=== PATIENT | male | born 1995 | race Caucasian/White ===

== ENCOUNTER 2025-07-19 12:33 | Emergency (ER) | payer BC, SELFPAY ==
[2025-07-19 12:42] VITALS: BP 148/96
[2025-07-19 13:19] LABS: Hematocrit 43.8 % (39.0-52.0); Hemoglobin 15.1 g/dL (13.0-18.0); Mean Corp Hgb Conc. 34.5 g/dL (33.0-37.0); Mean Corpuscular Volume 84.6 fL (80.0-94.0); Nucleated Red Blood Cells % 0 % (-); Platelet Count 131 10^3/uL (130-400); Red Cell Dist. Width 12.6 % (11.5-14.5)
[2025-07-19 13:25] LABS: ALT (SGPT) 21 U/L (0-50); AST (SGOT) 19 U/L (17-59); Albumin 4.0 g/dl (3.5-5.0); Alkaline Phosphatase 55 U/L (38-126); Blood Urea Nitrogen 14 mg/dl (9-20); Calcium 9.1 mg/dl (8.4-10.2); Carbon Dioxide 29 mmol/L (22-30); Chloride 102 mmol/L (98-107); Glucose 105 mg/dl (70-99); Potassium 4.5 mmol/L (3.5-5.1); Sodium 135 mmol/L (135-145); Total Protein 6.3 g/dl (6.3-8.2); eGFR 59.08
[2025-07-19 13:27] LABS: Urine Character Clear (Clear)
[2025-07-19 14:30] LABS: Urine Squamous Cell 0-2 /LPF (Few); Urine White Cell 0-2 /HPF (0-5)
--- NOTE | 2025-07-19 15:12 | ED.GENMED ---
History of Present Illness
General
Chief Complaint: Flank Pain
Source: patient
Exam Limitations: none
Time Seen by Provider: 07/19/25 14:57
History of Present Illness
History of Present Illness:
30yoM with no significant past medical history presenting for evaluation of flank pain. Patient started with left flank pain 3 days ago. He was seen at [facility] ED and diagnosed with a 2mm L kidney stone. He was given prescriptions for Flomax,
naproxen, [place], and Zofran. He has a follow-up appointment scheduled with [facility] on 07/25/24. He was doing well yesterday and started to have severe L flank pain again this afternoon followed by 1 episode of vomiting. Symptoms have
since resolved and he is currently pain free. No fevers or urinary symptoms.
Phy Exam
General Physical Exam
General Presentation: well appearing and no apparent distress
General age: appears stated age
General Skin: warm and dry
General Habitus: normal
General Mental: alert
ENT Exam
ENT Exam: normocephalic
Pulmonary Exam
Pulmonary Exam: no respiratory distress
Gastrointestinal Exam
Gastrointestinal Exam: non tender, soft, non distended and no cva tenderness
Neurological Exam
Neurological Exam: alert
Abeba Coma Scale
Eye Opening: Spontaneous
Verbal Response: Oriented
Motor Response: Obeys Commands
GCS Total Score: 15
Skin Exam
Skin Exam: normal color and warm/dry
Psychiatric Exam
Psychiatric Exam: normal mood/affect
Course
Orders/Labs/Results
Orders:
Orders
07/19/25
Renal & Bladder US [US Renal With Bladder] Urgent
Comment:
Reason For Exam: recent diagnosis of L ureteral stone
07/19/25 12:56
CBC/With Diff [Complete Blood Count/With Diff] Urgent
Comprehensive Metabolic Panel Urgent
Urinalysis Reflex To Culture Urgent
Date Specimen was Collected: 07/19/25
Time Specimen was Collected: 12:47
Urine Microscopic Reflex Cult Urgent
07/19/25 15:11
0.9% Sodium Chloride 1000 ml [Nss] 1,000 ml IV BOLUS
Abnormal Lab Results
07/19/25
12:56
WBC 11.3 H 10^3/uL
(4.8-10.8)
MPV 11.4 H fL
(7.4-10.4)
Abs Immat Gran (auto) 0.1 H 10^3/uL
(0-0.05)
Absolute Neuts (auto) 9.6 H 10^3/uL
(1.4-6.5)
Absolute Lymphs (auto) 1.0 L 10^3/uL
(1.2-3.4)
Neutrophils % 84.7 H %
(42.2-75.2)
Lymphocytes % 8.7 L %
(20.5-51.1)
Creatinine 1.6 H mg/dL
(0.7-1.3)
Glucose 105 H mg/dl
(70-99)
Ur Occult Blood Reflex 1+ A
(Negative)
Urine RBC 7-10 A /HPF
(0-2)
Urine Bacteria (Reflex) Few A
(Negative)
07/19/25 12:56
07/19/25 12:56
Vital Signs
Initial and Last Documented VS:
Initial Vital Signs
Pulse Resp BP Pulse Ox
90 16 148/96 96
07/19/25 12:42 07/19/25 12:42 07/19/25 12:42 07/19/25 12:42
Last Documented Vital Signs
Temp Pulse Resp BP Pulse Ox
97.8 F 90 16 148/96 96
07/19/25 15:14 07/19/25 12:42 07/19/25 12:42 07/19/25 12:42 07/19/25 15:14
MDM/Problems Addressed
Differential Diagnosis Includes:
30yoM here after an episode of L flank pain and vomiting this afternoon. Symptoms now resolved. Diagnosed with 2mm L kidney stone 2 days ago. Patient hypertensive with otherwise stable vital signs. He is well appearing in no distress. No abdominal
or CVA tenderness. Differential diagnosis includes: renal colic, passed stone, hydronephrosis
Initial ED plan: Workup initiated in triage. Creatinine 1.6, unclear baseline and patient does not have records available from recent ED visit. UA with microscopic hematuria but no signs of infection. Will check renal ultrasound. IV fluid bolus.
Attempt to obtain records from [facility].
*Pulse Oximetry
SaO2: 96
Oxygen Mode of Delivery: Room air
Patient hypoxic: no
*Critical Care Note
Total Time (30-74mins, 75-104mins- exclusive of procedures): Not Applicable
Update Note
Update Note:
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 Renal ultrasound does not show any dilatation of renal collecting system and bilateral ureteral jets are confirmed. Suspect that patient has passed stone.
He remains asymptomatic on reassessment. He is stable for discharge. Advised increased fluid intake. He has an appt with his PCP in 2 days and ED return precautions reviewed. Patient in agreement with plan and was discharged in stable condition.
ED Attending Note
-
Portions of this chart may have been created with voice recognition software.� Occasional wrong word or��sound alike� substitutions may have occurred due to the inherent limitations of voice recognition software.
Discharge Plan
Departure
Patient Disposition: Home (Routine Discharge)
Date of Disposition: 07/19/25
Time of Disposition: 17:23
Patient with high blood pressure during this ER visit?: Yes
Discharge Problem:
Left flank pain
Instructions: Kidney Stones (DC)
Referrals:
Bryson Aviles MD [Family Provider, Family Practice]
Activity Restrictions/Additional Instructions:
Increase your fluid intake and stay hydrated. Continue taking Zofran as needed for nausea and naproxen/hydrocodone as needed for pain.
Please follow-up with urology next week as previously scheduled. Return to the ER with any worsening symptoms including uncontrolled pain or fevers.
Interventions
Interventions:
*General Assessment Last Done: 07/19/25 12:42
*Neglect/Abuse Screening Last Done: 07/19/25 12:42
*Risk Screen - Suicide (C-SSRS) Last Done: 07/19/25 12:42
AE-Vveuhf-Fnnuhnazwz Assessment Last Done: 07/19/25 15:27
ED-Male Genitourinary Assessment Last Done: 07/19/25 15:27
Discharge Date and Time
Print Language: [id number]
[2025-07-19] MEDS: NSS 1000 IV (15:28)
== END 2025-07-19 17:40 | disposition home or self-care (01) ==
LOC: EMR 12:33
PROVIDERS: Student in an Organized Health Care Education/Training Program; EMERGENCY PHYSICIAN Emergency Medicine; FAMILY PHYSICIAN Family Medicine
DX: R10.A2 Flank pain, left side (principal); R03.0 Elevated blood-pressure reading, without diagnosis of hypertension
CPT/HCPCS: 99284; 96360; 76770; 80053; 81003; 81015; 85025